=== PATIENT | female | born 1945 | race Caucasian/White ===

== ENCOUNTER → 2016-11-26 | Outpatient (CLI) | payer OTHER, BC ==
--- NOTE | 2016-11-26 10:20 | DI ---
History: Low back pain Comparison: None Findings: Cauda equina normal in position at the level of L1 Conus medullaris is normal T12-L1: No stenosis or foraminal narrowing L1-2: No stenosis or foraminal narrowing L2-3 no stenosis or foraminal narrowing. Very mild posterior disc bulge without significant impressio n upon the thecal sac L3-4 mild posterior disc bulge. Mild degenerative changes in facet joints. Mild ligamentous hypertrop hy. Subsequent mild focal spinal stenosis. Neural foramina remain bilaterally L4-5 mild posterior disc bulge impressing upon the thecal sac. Moderate degenerative changes of facet joints. Ligamentous hypertrophy. These changes result in moderate focal spinal stenosis. There is mi ld bilateral neural foramen narrowing secondary to the hypertrophic degenerative changes in facet mynor nts in combination with a mild disc bulge L5-S1: Mild posterior disc bulge without significant impression upon the thecal sac. There is a fairl y large left posterior lateral disc bulge/osteophyte complex at this level which may be impinging upo n the exiting left L5 nerve root. Impression: At the level of L3-4 there is mild focal spinal stenosis secondary to degenerative changes At the level of L4-5 there is moderate focal spinal stenosis, and there is mild bilateral neural fora buffy narrowing secondary to degenerative changes. At the level of L5-S1 there is a left, posterior lateral disc bulge/osteophyte complex which may be i mpressing upon the exiting L5 nerve root.
== END ==
LOC: MRI 08:49
PROVIDERS: ATTEND Orthopaedic Surgery
DX: M54.5 Low back pain (principal); M47.817 Spondylosis without myelopathy or radiculopathy, lumbosacral region
CPT/HCPCS: 72148